=== PATIENT | male | born 2000 | race American Indian/Alaskan Native ===

== ENCOUNTER 2022-02-20 23:30 | Emergency (ER) | payer SELFPAY ==
[2022-02-21 01:05] LABS: Basophils % (Auto) 0.4 % (0.0-1.8); Eosinophils % (Auto) 0.6 % (0.0-4.3); Hematocrit 44.6 % (35.5-45.6); Hemoglobin 15.3 gm/dl (11.8-15.2); Lymphocytes # (Auto) 1.8 K/mm3 (1.2-5.4); Lymphocytes % (Auto) 23.6 % (13.4-35.0); Mean Corpuscular HGB Conc 34 % (32-34); Mean Corpuscular Volume 92 fl (84-94); Monocytes # (Auto) 0.5 K/mm3 (0.0-0.8); Monocytes % (Auto) 6.9 % (0.0-7.3); Platelet Count 243 K/mm3 (140-440); Red Blood Count 4.85 M/mm3 (3.65-5.03)
[2022-02-21 01:57] LABS: BUN/Creatinine Ratio 11; Blood Urea Nitrogen 10 mg/dL (9-20); Calcium 9.6 mg/dL (8.4-10.2); Hemolysis Index 6
[2022-02-21] MEDS ORDERED: SODIUM CHLORIDE 0.9% 1000 ML 1,000 ML ONE (02:32)
[2022-02-21] MEDS ORDERED: SODIUM CHLORIDE 0.9% 1000 ML 1,000 ML IV ONE (02:32)
--- NOTE | 2022-02-21 03:23 | Emergency Department Report ---
ED Psych HPI - General Chief Complaint: Psych Stated Complaint: HEART FLUTTER/HEARING VOICES/MH EVAL Time Seen by Provider: 02/21/22 03:18 Source: patient Mode of arrival: Ambulatory - History of Present Illness Initial Comments: 21-year-old male brought in by mother with concern for auditory and visual hallucination that started about a week or 2 ago progressively getting worse. According to mother patient started feeling like somebody was talking to him that was not there and becoming really paranoid. No other modifying or associated factors reported. - Related Data Allergies Allergy/AdvReac Type Severity Reaction Status Date / Time No Known Allergies Allergy Unverified 02/21/22 00:37 ED Review of Systems ROS: Stated complaint: HEART FLUTTER/HEARING VOICES/MH EVAL Other details as noted in HPI Comment: All other systems reviewed and negative Psychiatric: anxiety, depression, auditory hallucinations, visual hallucinations ED Physical Exam - General Limitations: No Limitations General appearance: alert, in no apparent distress - Head Head exam: Present: normal inspection - Eye Eye exam: Present: normal appearance Pupils: Present: normal accommodation - ENT ENT exam: Present: normal exam, normal orophraynx, mucous membranes moist - Neck Neck exam: Present: normal inspection, full ROM. Absent: tenderness - Respiratory Respiratory exam: Present: normal lung sounds bilaterally. Absent: respiratory distress, accessory muscle use - Cardiovascular Cardiovascular Exam: Present: regular rate, normal rhythm, normal heart sounds - GI/Abdominal GI/Abdominal exam: Present: soft, normal bowel sounds. Absent: distended, tenderness - Extremities Exam Extremities exam: Present: normal capillary refill. Absent: tenderness, pedal edema - Back Exam Back exam: Absent: tenderness - Neurological Exam Neurological exam: Present: alert, oriented X3 - Psychiatric Psychiatric exam: Present: normal affect, normal mood, depressed - Skin Skin exam: Present: warm ED Course Vital Signs 02/21/22 02/21/22 02/21/22 00:31 01:16 01:30 Temperature 98.6 F Pulse Rate 121 H 108 H 103 H Respiratory 18 17 13 Rate Blood Pressure 127/77 Blood Pressure 146/78 [Right] O2 Sat by Pulse 100 100 Oximetry 02/21/22 02/21/22 01:45 01:54 Temperature 97.9 F Pulse Rate 108 H Respiratory 14 18 Rate Blood Pressure 121/74 Blood Pressure [Right] O2 Sat by Pulse 100 99 Oximetry ED Medical Decision Making - Lab Data Result diagrams: 02/21/22 00:46 02/21/22 00:46 - EKG Data -: EKG Interpreted by Me EKG shows normal: sinus rhythm Rate: normal - EKG Data 02/21/22 03:22 Initial EKG shows normal sinus rhythm at a rate of [address] elevation or depression in this normal ECG. - Medical Decision Making Here with depression feeling with both visual and auditory hallucination with no suicide or homicidal ideation--differential diagnosis, including but not limited to: Encounter for behavioral health screening examination, encounter for medical screening examination--Due to these will go ahead and other routine labs studies including CBC, CMP and UA with UDS and thyroid profile in anticipation for mental health evaluation. Assessment and plan: here with concern with depressive feeling and suicidal ideation --but noted with reassuring vital signs, in no acute distress, who is cooperative, ANO x3, not homicidal or suicidal. At this point in time, this patient is cleared medically for psychiatry evaluation and recommendation. I have ordered mental health evaluation. Will go ahead and order typical laboratory studies in anticipation of mental health requests. Pt will be held until cleared medication for psychiatry evaluation Critical care attestation.: If time is entered above; I have spent that time in minutes in the direct care of this critically ill patient, excluding procedure time. ED Disposition Clinical Impression: Hallucinations Disposition: [address] [place] [address] Is pt being admited?: No Does the pt Need Aspirin: No Condition: Stable Referrals: PRIMARY CARE, [Primary Care Provider] - 3-5 Days
[2022-02-21 05:34] LABS: Color,Urine Colorless (Yellow)
[2022-02-21 05:36] LABS: Bacteria,Urine 2+ /HPF (Negative); Mucus,Urine 3+ /HPF; WBC,Urine < 1.0 /HPF (0.0-6.0)
[2022-02-21 05:46] LABS: Amphetamine Screen,Urine Negative; Benzodiazepines Screen,Urine Negative; Cannabinoid Screen,Urine Negative; Cocaine Screen,Urine Negative; Opiate Screen,Urine Negative
[2022-02-21 06:16] LABS: Methadone Screen,Urine Negative
--- NOTE | 2022-02-21 09:35 | Electrocardiograph Report ---
[facility] Test Date: 2022-02-21 Test Time: 01:02:42 Pat Name: DARLENE MUNGUIA Department: Room: Gender: M Moderate Needs Teacher: FRAN : 2000 Requested By: VINCE RIOS Order Number: [id number] Reading MD: Thuan Casas Measurements Intervals [place] Rate: 99 P: 82 IN: 127 QRS: 69 QRSD: 87 T: 62 QT: 331 QTc: 424 Interpretive Statements Sinus rhythm No previous ECG available for comparison Electronically Signed On 02-21-2022 9:34:39 EDT by Thuan Casas
--- NOTE | 2022-02-21 10:36 | Consultation ---
History of Present Illness - Reason for Consult Consult date: 02/21/22 Reason for consult: auditory hallucinations - History of Present Psychiatric Illness ED Note: 21-year-old male brought in by mother with concern for auditory and visual hallucination that started about a week or 2 ago progressively getting worse. According to mother patient started feeling like somebody was talking to him that was not there and becoming really paranoid. No other modifying or a ssociated factors reported. The patient is a 21 year-old male with no prior psychiatric history who presents to the ED for mental health evaluation. The patient was seen today. He reports hearing voices x1 week. The voice is telling him "offensive stuff." Patient endorses suicidal ideation with a plan "with a knife." Collateral received from patient's mother: patient had a "nervous breakdown," in 2019 due to multiple deaths in the family; they called a crisis mobile unit and he was given breathing treatment. The patient's mom reports patient has never seen a psychiatrist in the past and he is naive to psychotropic medications. Patient's mom reports patient has had bizarre behavior for the last 2 weeks. PAST PSYCHIATRIC HISTORY Diagnoses: denies dx Suicide attempts or Self-harm behavior: Yes Prior psychiatric hospitalizations: No Substance Abuse history: Marijuana Previous psychiatric medications tried: Unable to recall Outpatient treatment: Unknown PAST MEDICAL HISTORY: None reported Family Psychiatric History: None reported or documented SOCIAL HISTORY Living arrangement: lives with mother Marital status: Single Employment status: Unknown Education: 12 grade Abuse: None REVIEW OF SYSTEMS Constitutional: Negative for weight loss ENT: Negative for stridor Respiratory: Negative for cough or hemoptysis All other systems reviewed and are negative MENTAL STATUS EXAMINATION General Appearance and Behavior: Age appropriate, good hygiene, wearing appropriate clothes, good eye contact, calm, cooperative Cooperation: Participating/engaged, but Guarded Psychomotor Behavior: Psychomotor normal Mood: withdrawn Affect and affective range: congruent with stated mood Thought Process: goal directed Thought Content: suicidal/hallucinations Speech: Normal tone and pace Suicidal Ideation: Reports plan "with a knife," Homicidal Ideation: Denies Hallucinations: Auditory hallucinations Delusions: None elicited Impulse Control: Normal Insight and Judgment: Limited insight and judgment Memory: Normal Attention: Attentive Orientation: Alert, oriented Assessment and Plan Schizophrenia Treatment Plan 1013 Start olanzapine 2.5 mg BID and trazodone 25 mg qhs for insomnia Risks, benefits and alternatives of medications discussed with the patient, questions answered and consent obtained from patient. PSYCHOTHERAPY: Supportive psychotherapy provided MEDICAL: Per primary team DELIRIUM PRECAUTIONS: Please re-orient patient frequently, keep lights on during the day, and minimize benzodiazepines and opiates as these medications could worsen patient's confusion. RN OUTPATIENT SURGERY: Defer to primary DISPOSITION: Recommend acute inpatient psychiatric hospitalization at this time Will follow. Thank you for the consult. Please contact with any questions and/or concerns. Case staffed with Dr. Diamond Medications and Allergies Medications and Allergies Allergies Allergy/AdvReac Type Severity Reaction Status Date / Time No Known Allergies Allergy Unverified 02/21/22 00:37 Mental Status Exam - Vital signs Last Vital Signs Temp 97.7 F 02/21/22 05:27 Pulse 93 H 02/21/22 05:00 Resp 20 02/21/22 05:00 BP 136/70 02/21/22 05:25 Pulse Ox 100 02/21/22 05:00 Results Result Diagrams: 02/21/22 00:46 02/21/22 00:46 Abnormal lab results 02/21/22 02/21/22 02/21/22 Range/Units 00:46 00:46 00:46 Hgb 15.3 H (11.8-15.2) gm/dl RDW 12.0 L (13.2-15.2) % Glucose 113 H (75-100) mg/dL Salicylates < 0.3 L (2.8-20.0) mg/dL Acetaminophen (10.0-30.0) ug/mL 02/21/22 Range/Units 00:46 Hgb (11.8-15.2) gm/dl RDW (13.2-15.2) % Glucose (75-100) mg/dL Salicylates (2.8-20.0) mg/dL Acetaminophen 5.0 L (10.0-30.0) ug/mL All other labs normal.
--- NOTE | 2022-02-21 12:55 | Event Note ---
Date: 02/21/22 S: 22-year-old M presents for evaluation of auditory/visual hallucinations. Pt was seen/evaluated by the initial evaluating ER physician, Dr. Lyn. Patient was subsequently medically cleared by him as well as placed on a 1013 psychiatric hold. Objective: Vitals are stable. Adult male, ambulating with normal steady gait, no acute distress, renal extremity Assessment: 22yo M p/w auditory visual hallucinations. 1013 signed by . Patient was seen and evaluated by psychiatry. Recommendation for inpatient admission reviewed. Plan: Disposition per psychiatry
[2022-02-21] MEDS ORDERED: traZODone 50 MG TAB PO SCH (22:00)
[2022-02-22 09:51] VITALS: BP 124/81
[2022-02-22] MEDS ORDERED: ZIPRASIDONE 20 MG CAP PO ONE (13:32)
--- NOTE | 2022-02-22 15:02 | Emergency Department Report ---
Blank Doc - Documentation Documentation: 21-year-old male presents to the hospital with psychosis and paranoia. No rodney nts overnight. Patient has been accepted and awaiting transfer to psychiatric facility
== END 2022-02-22 15:23 ==
LOC: ED 23:30
DX: R44.0 Auditory hallucinations (principal); R44.1 Visual hallucinations; Z20.822 Contact with and (suspected) exposure to COVID-19; Z79.899 Other long term (current) drug therapy
CPT/HCPCS: 36415; 80048; 80307; 81001; 85025; 96360; 99285; J7030; U0003; 80320; G0480